=== PATIENT | male | born 1995 | race Caucasian/White ===

== ENCOUNTER 2017-02-08 18:03 | Emergency (ER) | payer OTHER ==
[2017-02-08 19:07] VITALS: BP 155/81
--- NOTE | 2017-02-08 20:03 | UC ---
Respiratory Complaint HPI - HPI Summary HPI Summary: patient has had increased congestion for the past two weeks, started as a head coold, now coughing alot and chest congestion, denies fever. - History of Current Complaint Chief Complaint: UCGeneralIllness Stated Complaint: CONGESTION Time Seen by Provider: 02/08/17 19:50 Hx Obtained From: Patient Onset/Duration: Sudden Onset, Lasting Weeks Timing: Constant Severity Initially: Moderate Severity Currently: Moderate Character: Cough: Nonproductive Aggravating Factors: Allergens, Exertion, Deep Breaths, Recumbent Position Alleviating Factors: Bronchodilator Associated Signs And Symptoms: Positive: Wheezing, URI - Allergies/Home Medications Allergies/Adverse Reactions: Allergies Allergy/AdvReac Type Severity Reaction Status Date / Time No Known Allergies Allergy Verified 02/08/17 19:07 Home Medications: Home Medications GuaiFENesin DM* [Robitussin DM*] 10 ml PO Q6H PRN 02/08/17 [History Confirmed ] PMH/Surg Hx/FS Hx/Imm Hx Previously Healthy: Yes - Surgical History Surgical History: None - Family History Known Family History: Positive: Unknown - Social History Alcohol Use: Occasionally Substance Use Type: None Smoking Status (MU): Former Smoker Type: Smokeless Tobacco When Did the Patient Quit Smoking/Using Tobacco: 1 YR AGO Review of Systems Constitutional: Negative Skin: Negative Eyes: Negative ENT: Negative Respiratory: Shortness Of Breath, Cough Cardiovascular: Negative Gastrointestinal: Negative Genitourinary: Negative Motor: Negative Neurovascular: Negative Musculoskeletal: Negative Neurological: Negative Psychological: Negative Is Patient Immunocompromised?: No All Other Systems Reviewed And Are Negative: Yes Physical Exam Triage Information Reviewed: Yes Appearance: Well-Appearing, Well-Nourished, Pain Distress Vital Signs: Initial Vital Signs Temp 98.3 F 02/08/17 19:02 Pulse 91 02/08/17 19:02 Resp 20 02/08/17 19:02 BP 155/81 02/08/17 19:02 Pulse Ox 100 02/08/17 19:02 Vital Signs Reviewed: Yes Eye Exam: Normal ENT Exam: Normal ENT: Positive: Pharyngeal erythema, TMs normal Dental Exam: Normal Neck exam: Normal Neck: Positive: Supple, Nontender, No Lymphadenopathy Respiratory: Positive: Chest non-tender, Lungs clear, Normal breath sounds, Wheezing, Inspiration, Other: - coarse cough Cardiovascular Exam: Normal Abdominal Exam: Normal Abdomen Description: Positive: Nontender, No Organomegaly, Soft Bowel Sounds: Positive: Present Musculoskeletal Exam: Normal Neurological Exam: Normal Psychological Exam: Normal Skin Exam: Normal UC Diagnostic Evaluation - Laboratory O2 Sat by Pulse Oximetry: 100 Respiratory Course/Dx - Course Course Of Treatment: hx obtained, exam performed ,meds reviewed, treated for bronchospasm - Differential Dx/Diagnosis Differential Diagnosis/HQI/PQRI: Asthma, Bronchitis, Influenza, Laryngitis, Sinusitis Provider Diagnoses: hx of asthma. bronchospasm Discharge - Discharge Plan Condition: Stable Disposition: HOME Prescriptions: predniSONE TAB* [Deltasone TAB*] 40 mg PO DAILY #14 tab Patient Education Materials: Bronchospasm (ED) Forms: *Work Release Additional Instructions: 1. take the medication as prescribed. 2. continue with your albuterol inhaler.
== END 2017-02-08 20:05 | disposition home or self-care (01) ==
LOC: UCCORT 18:03
DX: J98.01 Acute bronchospasm (principal); Z87.891 Personal history of nicotine dependence
CPT/HCPCS: 99212; G0463